=== PATIENT | male | born 1950 | race Caucasian/White ===

== ENCOUNTER 2017-03-17 20:07 | Emergency (ER) | payer MEDICARE, BC ==
--- NOTE | 2017-03-17 20:39 | EDM.PDOC ---
ED HPI GENERAL MEDICAL PROBLEM - General Chief Complaint: ENT Problem Stated Complaint: NOSE BLEED Time Seen by Provider: 03/17/17 20:09 Source of Information: Reports: Patient History Limitations: Reports: No Limitations - History of Present Illness INITIAL COMMENTS - FREE TEXT/NARRATIVE: This is a 66-year-old male. He has a history of elevated blood pressure along with a history of cardiac bypass and stents. He states that 6 or 8 months ago he had a nasal bleed that was cauterized by Dr. Li in the left nasal passage about midway back. Tonight around an hour and a half ago he had onset of nasal bleed out the right side again. He tried to pack his nose and put a clip on his nose but the bleeding continues and he comes to the ER. He has bleeding out of both sides of his nasal passage but he says it started on the right. He indicates his blood pressure at that time the nose started bleeding is about 160/90. He is on several medications for his blood pressure because been very hard to control. He is still having active bleed down his throat and he continues to spit up clots here in the ER. The patient takes baby aspirin daily but no other blood thinners. - Related Data Allergies Allergy/AdvReac Type Severity Reaction Status Date / Time atorvastatin [From Lipitor] Allergy Other Verified 03/17/17 20:41 Home Meds: Home Meds Aspirin [Halfprin] 81 mg PO DAILY 11/29/14 [History] Ezetimibe [Zetia] 10 mg PO DAILY 11/29/14 [History] Levothyroxine 25 mcg PO ACBREAKFAST #30 tablet 11/29/14 [Rx] Losartan Potassium [Cozaar] 100 mg PO DAILY 11/29/14 [History] Rosuvastatin [Crestor] 5 mg PO ASDIRECTED 11/29/14 [History] amLODIPine [Norvasc] 2.5 mg PO DAILY 11/29/14 [History] Metoprolol Succinate 50 mg PO DAILY 03/17/17 [History] Social & Family History - Tobacco Use Smoking Status *Q: Former Smoker Years of Tobacco use: 6 Used Tobacco, but Quit: Yes Month Tobacco Last Used: 1979 - Alcohol Use Days Per Week of Alcohol Use: 7 Number of Drinks Per Day: 4 Total Drinks Per Week: 28 - Recreational Drug Use Recreational Drug Use: No ED ROS ENT - Review of Systems Review Of Systems: See Below Constitutional: Denies: Fever, Chills HEENT: Reports: Nosebleed, Other (As per history of present illness) Respiratory: Reports: No Symptoms Cardiovascular: Reports: Other (History of cardiac bypass and stents) Endocrine: Reports: No Symptoms GI/Abdominal: Reports: Nausea, Vomiting. Denies: Abdominal Pain Musculoskeletal: Reports: No Symptoms Skin: Reports: No Symptoms Neurological: Reports: No Symptoms Psychiatric: Reports: No Symptoms Hematologic/Lymphatic: Reports: No Symptoms ED EXAM, ENT - Physical Exam Exam: See Below Exam Limited By: No Limitations General Appearance: Alert, WD/WN, Mild Distress Eye Exam: Bilateral Eye: Normal Inspection Ears: Normal External Exam Nose: Active Bleeding, Other (He has a nasal clip on and both of his nasal passages are stuffed with what appears to be toilet paper, he is continually hacking up some blood clots and there is no obvious dripping out the front of his nose) Mouth/Throat: Other (Mouth is covered in blood it's difficult to see the oropharynx and whether there is any bleeding actively posteriorly but he continues to have Blood clots so it is presumed he is continuing to bleed posteriorly) Head: Normocephalic Neck: Supple Respiratory/Chest: No Respiratory Distress, Lungs Clear, Normal Breath Sounds Cardiovascular: Regular Rate, Rhythm, No Murmur GI/Abdominal: Soft, Other (Denies any abdominal tenderness, patient is enlarged abdomen) Back: Full Range of Motion Extremities: Normal Inspection Neurological: Alert, Oriented Psychiatric: Anxious Skin: Warm, Dry Course - Vital Signs Last Recorded V/S: Last Vital Signs Temp 97.6 F 03/17/17 20:33 Pulse 64 03/17/17 20:33 Resp 18 03/17/17 20:33 BP 155/81 H 03/17/17 20:33 Pulse Ox 98 03/17/17 20:33 - Orders/Labs/Meds Meds: Medications Discontinued Medications Generic Name Dose Route Start Last Admin Trade Name Freq PRN Reason Stop Dose Admin Cocaine HCl Confirm 03/17/17 20:24 03/17/17 21:04 Cocaine Hcl Administered 03/17/17 20:25 Not Given Dose 4 ml .ROUTE .STK-MED ONE Cocaine HCl 4 ml 03/17/17 21:04 03/17/17 20:50 Cocaine Hcl TOP 03/17/17 21:05 4 ml ONETIME ONE Administration - Re-Assessments/Exams Free Text/Narrative Re-Assessment/Exam: 03/17/17 21:33 The right-sided nasal bleed has stopped completely. There is no postnasal bleeding or drainage noted on exam. The patient feels comfortable going home. I gave him the option of either coming back here tomorrow evening to have it removed or seeing Dr. Velázquez remove it Sunday in the office. Departure - Departure Time of Disposition: 21:34 Disposition: Home, Self-Care 01 Condition: Good Clinical Impression: Right-sided epistaxis - Discharge Information Referrals: Gilbert Li MD [Primary Care Provider] - Forms: ED Department Discharge Additional Instructions: Do not blow your nose, do not pick at the nose or try to move or adjust the balloon, start the humidifier tonight to help moisture be in the air, watch your blood pressure and make certain it stays under control, you will notice possibly a little bit of blood on your mustache but if it starts dripping you need to return to the ER for reevaluation, you need to have the balloon removed either Sunday by coming back to the ER and having the ER doctor remove it or seeing Dr. Velázquez remove it in the office on Sunday, return to the ER as needed
[2017-03-17 20:41] VITALS: BP 155/81
== END 2017-03-17 21:55 | disposition home or self-care (01) ==
LOC: JD.ED 20:07
DX: R04.0 Epistaxis (principal); Z95.1 Presence of aortocoronary bypass graft; Z95.5 Presence of coronary angioplasty implant and graft; Z79.82 Long term (current) use of aspirin; Z79.899 Other long term (current) drug therapy; Z88.8 Allergy status to other drugs, medicaments and biological substances; Z87.891 Personal history of nicotine dependence
CPT/HCPCS: 30903; 99282-25; 99283-25

== ENCOUNTER 2017-03-18 10:09 | Emergency (ER) | payer MEDICARE, BC ==
[2017-03-18 10:23] VITALS: BP 180/95
[2017-03-18] MEDS ORDERED: Amoxicillin/Clavulanate K 875-125 MG Tab PO ONE (12:03)
--- NOTE | 2017-03-18 12:03 | EDM.PDOC ---
ED HPI GENERAL MEDICAL PROBLEM - General Chief Complaint: ENT Problem Stated Complaint: HIGH BP/ NOSE PAIN Time Seen by Provider: 03/18/17 10:38 Source of Information: Reports: Patient, Family (Ex-, daughter), Old Records , RN Notes Reviewed History Limitations: Reports: No Limitations - History of Present Illness INITIAL COMMENTS - FREE TEXT/NARRATIVE: The patient states that he has been experiencing recurrent epistaxis for the past 5-6 weeks, although he has not seen an ENT. He developed right epistaxis again last night. He was unable to get it to stop at home, therefore was seen in this ED for it. According to the medical records, the patient was treated with cocaine solution, without successful cessation, therefore a 7.5 cm RapidRhino was placed before he was discharged home. Today the patient states that his blood pressure was elevated at 172/103 at 08: 40, then 170/105 at 09:20, associated with right head pain. He has had a small amount of bleeding from the nostril and down the back of the throat. He is concerned that his elevated blood pressure is causing epistaxis, despite the RapidRhino. Here in the ED, the patient's initial blood pressure was 180/95, but down to 158 /75 without treatment. The patient is on daily aspirin, but no other anticoagulants. The patient's PCP is Dr. Li. Left Face Pain Score (Numeric/FACES): 7 - Related Data Allergies Allergy/AdvReac Type Severity Reaction Status Date / Time atorvastatin [From Lipitor] Allergy Other Verified 03/17/17 20:41 Home Meds: Home Meds Aspirin [Halfprin] 81 mg PO DAILY 11/29/14 [History] Ezetimibe [Zetia] 10 mg PO DAILY 11/29/14 [History] Levothyroxine 25 mcg PO ACBREAKFAST #30 tablet 11/29/14 [Rx] Losartan Potassium [Cozaar] 100 mg PO DAILY 11/29/14 [History] Rosuvastatin [Crestor] 5 mg PO ASDIRECTED 11/29/14 [History] amLODIPine [Norvasc] 2.5 mg PO DAILY 11/29/14 [History] Metoprolol Succinate 50 mg PO DAILY 03/17/17 [History] Amoxicillin/Clavulanate K [Augmentin 875 MG/125 MG] 1 tab PO Q12HR #6 tablet [Rx] Past Medical History HEENT History: Reports: Impaired Vision Other HEENT History: wears glasses Cardiovascular History: Reports: CAD, High Cholesterol, Hypertension Gastrointestinal History: Reports: Diverticulosis Musculoskeletal History: Reports: Arthritis Endocrine/Metabolic History: Reports: Hypothyroidism, Obesity/BMI 30+ - Past Surgical History HEENT Surgical History: Reports: Oral Surgery ([place] teeth extraction), Tonsillectomy Cardiovascular Surgical History: Reports: Carotid Endarterectomy (left), Coronary Artery Bypass (December 2011x 3 vessel), Coronary Artery Stent (x 3), Other (See Below) Musculoskeletal Surgical History: Reports: Arthroscopic Knee (bilateral) Social & Family History - Tobacco Use Smoking Status *Q: Former Smoker Years of Tobacco use: 6 Packs/Tins Daily: 1 Month Tobacco Last Used: Quit 1985 Second Hand Smoke Exposure: No - Caffeine Use Caffeine Use: Reports: Coffee - Alcohol Use Alcohol Use History: Yes Days Per Week of Alcohol Use: 7 Number of Drinks Per Day: 4 Total Drinks Per Week: 28 Alcohol Use Frequency: Daily - Recreational Drug Use Recreational Drug Use: No - Living Situation & Occupation Living situation: Reports: , Alone Occupation: Retired ED ROS ENT - Review of Systems Review Of Systems: See Below Constitutional: Reports: No Symptoms HEENT: Reports: No Symptoms Respiratory: Reports: No Symptoms Cardiovascular: Reports: No Symptoms Endocrine: Reports: No Symptoms GI/Abdominal: Reports: No Symptoms : Reports: No Symptoms Musculoskeletal: Reports: No Symptoms Skin: Reports: No Symptoms Neurological: Reports: No Symptoms Psychiatric: Reports: No Symptoms Hematologic/Lymphatic: Reports: No Symptoms Immunologic: Reports: No Symptoms ED EXAM, ENT - Physical Exam Exam: See Below Exam Limited By: No Limitations General Appearance: Alert, WD/WN, No Apparent Distress Eye Exam: Bilateral Eye: Normal Inspection Ears: Normal External Exam, Normal Canal, Hearing Grossly Normal, Normal TMs Nose: Other (Rapid Rhino inflated in the right nostril. No bleeding in the left. ) Mouth/Throat: Normal Inspection, Normal Gums, Normal Lips, Normal Oropharynx ( No blood in the posterior oropharynx), Normal Teeth Head: Atraumatic, Normocephalic Neck: Normal Inspection, Supple, Non-Tender, Full Range of Motion, Other (Well- healed left CEA scar) Respiratory/Chest: No Respiratory Distress, Lungs Clear, Normal Breath Sounds, No Accessory Muscle Use Cardiovascular: Normal Peripheral Pulses, Regular Rate, Rhythm, No Gallop, No JVD, No Murmur, No Rub GI/Abdominal: Normal Bowel Sounds, Soft, Non-Tender, No Organomegaly, No Distention, No Abnormal Bruit, No Mass, Other (Obese) (Male) Exam: Deferred Rectal (Males) Exam: Deferred Back: Normal Inspection, Full Range of Motion Extremities: Normal Inspection, Normal Range of Motion, No Pedal Edema, Normal Capillary Refill Neurological: Alert, Oriented, Normal Cognition, No Motor/Sensory Deficits Psychiatric: Normal Affect Skin: Warm, Dry, Intact, Normal Color, No Rash Course - Vital Signs Last Recorded V/S: Last Vital Signs Temp 36.1 C 03/18/17 10:18 Pulse 63 03/18/17 10:18 Resp 20 03/18/17 10:18 BP 180/95 H 03/18/17 10:18 Pulse Ox 97 03/18/17 10:18 - Orders/Labs/Meds Meds: Medications Discontinued Medications Generic Name Dose Route Start Last Admin Trade Name Bryan PRN Reason Stop Dose Admin Amoxicillin/Clavulanate Potassium 1 tab 03/18/17 12:03 03/18/17 12:08 Augmentin 875 Mg/125 Mg PO 03/18/17 12:04 1 tab ONETIME ONE Administration Cocaine HCl 2 ml 03/18/17 11:37 03/18/17 11:57 Cocaine Hcl TOP 03/18/17 11:38 1 ml ONETIME STA Administration - Re-Assessments/Exams Free Text/Narrative Re-Assessment/Exam: 03/18/17 11:59 With the Rapid Rhino still in place, no active bleeding was seen either from the nostril, or in the posterior oropharynx. The balloon was therefore removed, which resulted in a return of the right epistaxis. Cocaine and direct pressure were applied, but the bleeding continued, therefore a 5.5 cm Rapid Rhino was placed in the right nostril. 03/18/17 12:20 10 minutes after the placement of the Rapid Rhino, the patient was reevaluated, finding no additional bleeding. Additional air was inflated in the balloon. The patient has been started on oral Augmentin, and I will refer him to Dr. Gabriel , an ENT in [place] that the patient's family has a relationship with. Departure - Departure Time of Disposition: 12:27 Disposition: Home, Self-Care 01 Condition: Good Clinical Impression: Right-sided epistaxis, Elevated blood pressure reading - Discharge Information Prescriptions: Amoxicillin/Clavulanate K [Augmentin 875 MG/125 MG] 1 tab PO Q12HR #6 tablet Instructions: Nosebleed, [id number] Referrals: Jose M Gabriel MD [Ordering Only Provider] - Forms: ED Department Discharge Additional Instructions: You were seen in the emergency room for elevated blood pressure and right nostril bleeding. While somewhat elevated, your blood pressure was not so high that it required medical treatment. After the balloon was removed from her right nostril, your bleeding recurred, which was not able to be stopped with intranasal medicine, therefore a replacement balloon was placed. You have been started on the antibiotic Augmentin. Take one tablet every 12 hours, as prescribed. Follow-up with the ENT Dr. Gabriel at the next available appointment. If any other problems, please do not hesitate to return to the ER.
== END 2017-03-18 12:38 | disposition home or self-care (01) ==
LOC: JD.ED 10:09
DX: R04.0 Epistaxis (principal); I10 Essential (primary) hypertension; Z79.82 Long term (current) use of aspirin; Z79.899 Other long term (current) drug therapy; Z87.891 Personal history of nicotine dependence
CPT/HCPCS: 30903; 99283; A9270

== ENCOUNTER 2021-09-10 08:11 | Emergency (ER) | payer MEDICARE, BC ==
[2021-09-10] MEDS ORDERED: Aspirin 81 MG Tab.Chew PO ONE (08:38)
[2021-09-10] MEDS ORDERED: Sodium Chloride 0.9% 1,000 ML IV SCH (08:45)
[2021-09-10] MEDS ORDERED: Nitroglycerin/D5W 25 MG/250 ML BOTTLE IV SCH (08:45)
[2021-09-10] MEDS ORDERED: Aspirin 81 MG Tab.Chew ONE (08:53)
[2021-09-10] MEDS ORDERED: Metoclopramide 10 MG/2 ML SDV IVPUSH ONE (09:00)
[2021-09-10] MEDS ORDERED: fentaNYL 100 MCG/2 ML SDV IVPUSH ONE (09:00)
[2021-09-10 10:20] VITALS: BP 124/73; PULSE 62
== END 2021-09-10 10:15 | disposition home or self-care (01) ==
LOC: JD.ED 08:11
DX: R07.89 Other chest pain (principal); I25.10 Atherosclerotic heart disease of native coronary artery without angina pectoris; E78.00 Pure hypercholesterolemia, unspecified; I25.2 Old myocardial infarction; Z88.8 Allergy status to other drugs, medicaments and biological substances; Z79.82 Long term (current) use of aspirin; Z79.899 Other long term (current) drug therapy
CPT/HCPCS: 36415; 71045; 80053; 82553; 83735; 83880; 84484; 85025; 85379; 85610; 85730; 86140; 93005; 96365; 96375; 99285; A9270; J2765; J3010; J3490; J7030; 93010; 99284

== ENCOUNTER 2024-07-08 17:50 | Emergency (ER) | payer MEDICARE, BC ==
[2024-07-08] MEDS: Oxymetazoline 0.05% Nasal Spray 30 ML Bottle NAS ONE (18:15)
[2024-07-08] MEDS: hydrALAZINE 20 MG/ML SDV IVPUSH ONE (18:45)
[2024-07-08 19:06] VITALS: PULSE 74
[2024-07-08] MEDS: Acetaminophen 325 MG Tab PO ONE (20:25)
[2024-07-08] MEDS: Tranexamic Acid 1,000 MG/10 ML Vial TOP ONE (20:26)
[2024-07-08] MEDS: Tranexamic Acid 1,000 MG/10 ML Vial NEB ONE (20:34)
[2024-07-08 21:12] VITALS: BP 151/85
[2024-07-08] MEDS: Bacitracin Oint 15 GM Tube TOP ONE (22:52)
== END 2024-07-08 22:50 | disposition home or self-care (01) ==
LOC: JD.ED 17:50
DX: R04.0 Epistaxis (principal); I10 Essential (primary) hypertension; E78.00 Pure hypercholesterolemia, unspecified; I25.10 Atherosclerotic heart disease of native coronary artery without angina pectoris; I25.2 Old myocardial infarction; Z88.1 Allergy status to other antibiotic agents; Z79.82 Long term (current) use of aspirin; Z79.890 Hormone replacement therapy; Z79.899 Other long term (current) drug therapy; Z95.5 Presence of coronary angioplasty implant and graft; Z86.16 Personal history of COVID-19
CPT/HCPCS: 30901; 94640; 96374; 99283; A9270; J0360; 30903

== ENCOUNTER 2024-07-28 19:18 | Emergency (ER) | payer MEDICARE, BC ==
[2024-07-28] MEDS: Oxymetazoline 0.05% Nasal Spray 30 ML Bottle NAS ONE (19:52)
[2024-07-28] MEDS: Bacitracin Oint 15 GM Tube TOP ONE (22:42)
[2024-07-28 23:38] VITALS: BP 142/70; PULSE 75
== END 2024-07-28 22:40 | disposition home or self-care (01) ==
LOC: JD.ED 19:18
DX: R04.0 Epistaxis (principal); I25.10 Atherosclerotic heart disease of native coronary artery without angina pectoris; E78.00 Pure hypercholesterolemia, unspecified; I10 Essential (primary) hypertension; I25.2 Old myocardial infarction; E03.9 Hypothyroidism, unspecified; Z88.8 Allergy status to other drugs, medicaments and biological substances; Z95.5 Presence of coronary angioplasty implant and graft; Z79.82 Long term (current) use of aspirin; Z79.899 Other long term (current) drug therapy; Z79.890 Hormone replacement therapy; Z86.16 Personal history of COVID-19
CPT/HCPCS: 30901; 99283; A9270; C9046

== ENCOUNTER 2024-08-04 05:43 | Emergency (ER) | payer MEDICARE, BC ==
[2024-08-04 06:19] VITALS: BP 128/74; PULSE 69
== END 2024-08-04 06:26 | disposition home or self-care (01) ==
LOC: JD.ED 05:43
DX: R04.0 Epistaxis (principal); R09.89 Other specified symptoms and signs involving the circulatory and respiratory systems; I10 Essential (primary) hypertension; I25.2 Old myocardial infarction; I25.10 Atherosclerotic heart disease of native coronary artery without angina pectoris; E03.9 Hypothyroidism, unspecified; E78.00 Pure hypercholesterolemia, unspecified; Z88.5 Allergy status to narcotic agent; Z88.1 Allergy status to other antibiotic agents; Z79.82 Long term (current) use of aspirin; Z79.899 Other long term (current) drug therapy; Z79.890 Hormone replacement therapy; Z95.5 Presence of coronary angioplasty implant and graft; Z95.1 Presence of aortocoronary bypass graft; Z86.16 Personal history of COVID-19
CPT/HCPCS: 99283